=== PATIENT | female | born 1935 | race Caucasian/White ===

== ENCOUNTER 2016-03-09 17:02 | Observation (INO) | payer MEDICARE, MEDICAID ==
[~2016-03-09] VITALS: Ht 162.6 cm; Wt 56.7 kg
[~2016-03-09 17:02] MED LIST: ASPIRIN 81MG TA81 MG PO; B12 INJ.,1000 MCG/M IM; BUDESONIDE0.5 MG/2 M IH; DIAZEPAM5 M1 PO; DIAZEPAM5 MG PO; FAMOTIDINE 20MG20 MG PO; FLONASE 50 MCG16 GM; FUROSEMIDE 40MG40 M1 PO; GLYCOLAX17 GM/DOSE PO; LEVAQUIN500 MG PO; LEVOTHYROXINE0.05 MG PO; MECLIZINE12.5 MG PO; METOPROLOL SUC100 M1 PO; MIRALAX POWDER255 GM PO; MONTELUKAST SOD10 MG PO; OMEPRAZOLE20 MG PO; POTASSIUM CHLOR8 MEQ PO; PROBIOTIC FORMU1 CA2 PO; REGLAN 5MG TABLE5 MG PO; SIMVASTATIN40 MG PO; STOOL SOFTENER240 MG PO; TRAMADOL50 M1 PO
[2016-03-09 19:24] VITALS: BP 144/72
--- NOTE | 2016-03-09 19:26 | HISTORY AND PHYSICAL REPORT ---
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 She came to the office today and was oriented to person only, disoriented to place and time, found to have a low-grade fever,found to haveelevated blood pressure above 200, and was admitted to hospital for neurologic checks, CT scan, laboratory studies and further diagnostic testing. She denies pain, denies recent falls. Past medical history: Family HX Diabetes No CAD Yes Hypertension Yes Hyperlipidemia Yes Cancer Yes TB Yes Immunization HX DT/Tetanus 1-4 Years Ago Flu [id number] Flu Season Pneumonia Received In Past General CAD? Yes Angina: Yes NM: No Hypertension? Yes Hyperlipidemia? Yes CHF? No COPD? Yes Asthma? No Anemia? No Hernia? Yes Thyroid Problems? Yes Hypothyroidism? Yes CVA? No Seizures? No Diabetes? No UTI? Yes Stones? No GB Disease: No Nephritic Syndrome? No Asplenia? No Hepatitis? No Sickle Cell Disease? No Arthritis? No Cataracts? Yes Glaucoma? No MRSA? No TB? No Cancer? No Past Surgical HX Previous Surgery?Y BREAST SURGERY-30 YRS AGO [facility] Current home meds: Active Scripts TRAMADOL HCL (Tramadol) 50 MG PO TID PRN pain #90 TAB Ref 1 Prov: 04/26/14 Diazepam 2.5 MG PO QAM #45 TAB Prov: 04/26/14 Levofloxacin (Levaquin 500MG) 500 MG PO DAILY #5 TAB Prov: 04/26/14 Reported Medications METOPROLOL SUCCINATE XL (Metoprolol Succinate) 100 MG PO DAILY #30 TAB Levothyroxine Sodium (Levothyroxine) 0.05 MG PO DAILY #30 TAB Fluticasone Propionate (Flonase 50 Mcg Nasal Staley) 2 SPRAY NA DAILY #16 SPR ASPIRIN (Aspirin) 81 MG PO DAILY Diazepam (Diazepam 5MG) 5 MG PO QHS Metoclopramide Hcl (Reglan) 5 MG PO AC Probiotic Formula 1 CAP PO DAILY Famotidine (Famotidine 20MG) 20 MG PO QHS Docusate Calcium (Stool Softener) 240 MG PO DAILY Budesonide (Pulmicort) 0.5 MG IH BID Potassium Chloride 16 MEQ PO DAILY #60 Furosemide 80 MG PO DAILY #60 Omeprazole (Omeprazole 20MG) 20 MG PO BID #60 MECLIZINE HYDROCHLORIDE (Meclizine HCl) 12.5 MG PO BID Vitamin B12 (Cyanocobalamin Injection) 1,000 MCG IM MONTHLY Simvastatin (Simvastatin 40MG Tab) 40 MG PO QHS #30 Montelukast Sodium 10 MG PO DAILY #30 Polyethylene Glycol 3350 (Glycolax) 17 GM PO DAILY #527 Social Hx: Smoking HX Tobacco No Alcohol Alcohol: No Hx of Drug Use Drug Use? No Patien't marital status is Patient's support system is poor Comment: Lives at home with home health support, family is distant and in other counties. Review of systems: Constitutional fever, malaise, weakness. Respiratory shortness of breath, SOB with excertion, SOB at rest. No: wheezing. Cardiovascular No no symptoms reported Gastrointestinal/Abdominal nausea, poor appetite, poor fluid intake Genitourinary dysuria, frequency, hesitancy. Musculoskeletal joint pain. Neurological Yes: tremors, weakness. Exam: Lab data for last 24 hours: Microbiology 03/09 UNK BLOOD: Anaerobic Blood Culture - ORD 03/09 UNK BLOOD: Aerobic Blood Culture - ORD 03/09 UNK BLOOD: Anaerobic Blood Culture - ORD 03/09 UNK BLOOD: Aerobic Blood Culture - ORD Admission vital signs: blood pressure 210/160, pulse 92 regular, respiratory rate 12 Additional information: The patient is oriented only to person. She has symmetric cranial nerves but has a new tremor of the lower jaw consistent with ptotic dyskinesia symptomatology. Heart rate is regular. Abdomen is soft she has fairly clear lungs had diminished air movement at bases as is her baseline. Abdomen is soft, trace ankle edema. Walks with a great deal of ataxia symptoms with support from her daughter Plan: Problem List 1. Hypertensive urgency, malignant 2. COPD with emphysema 3. Frequent falls 4. Mental status change Plan: Plan will be to admit to hospital for observation. Neurologic checks. CT scan of head, labs as ordered. We will hold metoclopramide and other medications that might be causing mental status change. reevaluate hypertensive control Once laboratory studies and CT scan have returned. at 1585
[2016-03-09 20:44] LABS: HEMOGLOBIN 12.2 g/dL (12.2-16.2)
[2016-03-09 21:27] LABS: FREE THYROXIN INDEX 5.8 ug/dl (5.93-13.13)
[2016-03-09 21:43] VITALS: BP 144/72
[2016-03-09 22:27] LABS: URINE BILIRUBIN - DIPSTICK NEGATIVE (NEG); URINE BLOOD 2+ (NEG)
[2016-03-09 22:35] LABS: AMPHETAMINES/METAMPHETAMINES NEGATIVE ng/mL (<1000)
[2016-03-09 23:41] VITALS: BP 161/82
[2016-03-10 03:52] VITALS: BP 150/72
--- NOTE | 2016-03-10 06:05 | RADIOLOGY REPORT PS360 ---
CHEST(2 VIEWS-NOT PORTABLE) HISTORY: fever COMPARISON: None available FINDINGS: There is mild cardiomegaly without failure. There is tortuosity of the thoracic aorta. Eventration noted involving hemidiaphragm on both sides. No lobar consolidation or collapse. There is mild wedging involving what appears to represent T11 with mild thoracolumbar scoliosis convex left. IMPRESSION: 1. No acute cardiac or pulmonary pathology. There is cardiomegaly without failure. 2. Wedge compressive changes at T11 age-indeterminate
--- NOTE | 2016-03-10 06:06 | RADIOLOGY REPORT PS360 ---
CT HEAD W/O CONTRAST HISTORY: Altered mental status/memory loss, confusion or disorientation, altered level of consciousness MENTAL STATUS CHANGE COMPARISON: 3415 TECHNIQUE: Axial images obtained without contrast. Brain and bone windows reviewed. FINDINGS: No midline shift, mass effect, intracranial hemorrhage, hydrocephalus, or extra-axial fluid collection is evident. There is mild generalized atrophy with hypoattenuation periventricular region and subcortical white matter The calvarium has an unremarkable appearance. No mastoid effusion. Bilateral ethmoid mucosal thickening with air-fluid level in the right maxillary sinus, mucosal thickening with air-fluid level in the right sphenoid sinus, air-fluid level in the right frontal sinus.. IMPRESSION: 1. Atrophy with chronic ischemic change. 2. No acute intracranial pathology. 3. Sinusitis.
--- NOTE | 2016-03-10 07:25 | ACUTE CARE PROGRESS NOTE (QUA) ---
Progress Notes Subjective Date 03/10/16 Time 0723 Note Patient states that she feels "much better" than she did yesterday. No complaints of pain. Has eaten a good breakfast. Heart rate regular, anterior lung vidal are clear but with diminished air movement as is her normal exam pattern. Abdomen is soft and nontender, she has no edema. Neurologic exam improved with better strength and less lower jaw tremor Objective Findings Last VS-Temp:99.9 B/P:150/72 Pulse:71 Resp:20 SaO2:90 ROOM AIR Last weight lbs:125 oz:0 K.700 Method:Floor Scales Assessment/Plan Problem List 1. Hypertensive urgency, malignant 2. COPD with emphysema 3. Frequent falls 4. Mental status change Patient condition Improving Plan: continue current care, pressure improved with her normal medications. I wonder about medication compliance at home. PT/OT evaluation. Continue to hold the metoclopramide given its propensity for tremor and mental status change. This inpt stay is expected to cross 2 MNs from start of care No at 0717
[2016-03-10 07:43] VITALS: BP 167/78
--- NOTE | 2016-03-10 07:54 | PHARMACY CLINIC NOTE ---
Patient Demographics Patient Demographics Admission date: 03/09/16 Date: 03/10/16 Time: 075 Allergies Coded Allergies: Penicillins (03/09/16) codeine (03/09/16) HEIGHT- FT: 5 IN: 4.00 K.700 VTE General Information Labs: Laboratory Tests 03/09 2024 Hematology Hgb (12.2 - 16.2 g/dL) 12.2 Hct (37.0 - 47.0 %) 36.5 L Plt Count (142 - 424 K/mm3) 136 L Disclaimer The following section includes nursing documentation that has been pulled in for pharmacy review. Patient's VTE score: 2 Patient's VTE Risk: VERY LOW RISK Clinical trial participant? No VTE prophylaxis NQF [id number] VTE prophylaxis ordered? Yes Type of prophylaxis/treatment: JAMIN at 0754
[2016-03-10 08:17] LABS: LYMPH % 21.3 % (10-50.0)
[2016-03-10 09:00] VITALS: BP 156/76
--- NOTE | 2016-03-10 11:17 | DISCHARGE SUMMARY STANDARD ---
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 She came to the office today and was oriented to person only, disoriented to place and time, found to have a low-grade fever,found to haveelevated blood pressure above 200, and was admitted to hospital for neurologic checks, CT scan, laboratory studies and further diagnostic testing. She denies pain, denies recent falls. Hospital Course Hospital Course: Patient was admitted, she was subjected to laboratory testing that revealed essentially normal CBC and comprehensive metabolic profile. Urinalysis was also unremarkable, she had no changes from baseline on CT of head with a chronic change with atrophy but no new evidence of stroke or mass. With the cessation of her benzodiazepine and metoclopramide overnight she well and this morning had no visible tremor, was able to eat well and passed her physical therapy evaluation. She'll be discharged home with continued home health, the cessation of tramadol, diazepam and metoclopramide and close followup in my office. Discharge diagnoses Problem List 1. Hypertensive urgency, malignant 2. COPD with emphysema 3. Frequent falls 4. Mental status change Medications Medications: Discharge meds are as noted. Follow up Follow up in office in: 6 DAYS with: Dago Morse MD at 1115
[2016-03-10 11:55] VITALS: BP 178/80
[2016-03-10 15:00] VITALS: BP 156/76
[2016-03-11 20:35] LABS: Arsenic, Blood 5 ug/L (2-23); Mercury, Blood 1.1 ug/L (0.0-14.9)
== END 2016-03-10 16:10 | disposition home health service (06) ==
LOC: 2ND 17:02
PROVIDERS: Internal Medicine Adolescent Medicine
DX: J44.9 Chronic obstructive pulmonary disease, unspecified (principal); J43.9 Emphysema, unspecified; Z99.81 Dependence on supplemental oxygen; I16.0 Hypertensive urgency; Z91.81 History of falling; R27.0 Ataxia, unspecified; G25.1 Drug-induced tremor; T42.4X5A Adverse effect of benzodiazepines, initial encounter; T45.0X5A Adverse effect of antiallergic and antiemetic drugs, initial encounter; T40.4X5A Adverse effect of other synthetic narcotics, initial encounter; N39.0 Urinary tract infection, site not specified; R06.02 Shortness of breath; R26.0 Ataxic gait
CPT/HCPCS: G0378; G0379; G8978; G8979; G8980; G8990; G8991; G8992